=== PATIENT | female | born 1985 | race Caucasian/White ===

== ENCOUNTER 2017-05-21 16:00 | Inpatient (IN) ==
[2017-05-21] MEDS ORDERED: 0.9 % Sodium Chloride 1,000 ML IVC ONE (16:18)
[2017-05-21] MEDS ORDERED: Ondansetron 4 MG/2 ML VIAL IVP ONE (16:18)
[2017-05-21] MEDS ORDERED: Ketorolac 30 MG/ML VIAL IVP ONE (16:18)
--- NOTE | 2017-05-21 16:20 | Emergency Department Note ---
Disposition Clinical Impression: Vaginal bleeding Anemia Qualifiers: Anemia type: iron deficiency Iron deficiency anemia type: chronic blood loss Qualified Code(s): D50.0 - Iron deficiency anemia secondary to blood loss ( chronic) Disposition: Admitted As Inpatient Condition: Serious Time of Disposition: 19:22 Female Urogenital HPI - General Chief complaint: ED Vaginal Bleeding Stated complaint: Vaginal Bleed, abd pain Time Seen by Provider: 05/21/17 16:06 Source: patient Limitations: no limitations Nursing Notes Reviewed: Yes Vital Signs Reviewed: Yes - History of Present Illness HPI Narrative: 32-year-old female s/p tubal, presents with vaginal bleeding that she describes as intermittent, dark blood, soaking through several pads she has had this bleeding for 5 months, she was seen for a biopsy to her [address] Balbuena, he also wrote her prescription for Flagyl she is not sure why but she is on day 8 currently and has 2 more days of treatment. She reports intermittent discharge that she describes as watery and sometimes bloody, she is no concern for new STDs although she is not sure why she was started on Flagyl again, she was seen by her OBG Y and that was unable to get into [facility] today because the May, so she came to the ER due to persistent but similar symptoms of vaginal bleeding to had over the last few weeks. She denies fever chills shortness of breath or chest pain, does have intermittent left ankle swelling, no DVT history, no OCP use. Pt Subjective Complaint: vaginal bleeding Location: suprapubic Radiation: LLQ Severity: mild Quality: aching Duration: intermittent Vaginal discharge: dark blood Sexual activity: yes : no Associated symptoms: Reports: abnormal vaginal discharge, abnormal vaginal bleeding. Denies: abdominal pain, nausea/vomiting, fever/chills - Related Data Home Medications Medication Instructions Recorded Confirmed metroNIDAZOLE [Flagyl] 500 mg PO BID 05/21/17 05/21/17 Allergies Allergy/AdvReac Type Severity Reaction Status Date / Time No Known Allergies Allergy Verified 01/18/17 16:36 All systems ED: reviewed and negative except as stated. Constitutional: Denies: fever, chills Cardiovascular: Denies: chest pain Respiratory: Denies: cough Gastrointestinal: Reports: abdominal pain. Denies: nausea, vomiting, diarrhea, hematemesis, hematochezia Genitourinary: Reports: as per HPI, abnormal menses. Denies: urgency, dysuria, frequency Musculoskeletal: Denies: back pain Integumentary: Denies: rash, abrasion Past Medical History - Past Medical History Attestation: Yes The following information was validated with the patient. Source: patient Medical history: Reports: no medical history, other Psychiatric history: Reports: no psych history [facility] history: Reports: bilateral tubal ligation - Social History Smoking Status: Current every day smoker Smokeless Tobacco Status: No Alcohol use: Reports: none Drug use: Reports: none Physical Exam Constitutional: mild tachycardia heart rate 104, otherwise no acute distress, thin female, appears slightly older than stated age HEENT: NCAT, sclera anicteric, conjunctiva pallor Neck: normal inspection, neck is supple, trachea midline Resp: normal chest inspection, CTA bilaterally, no resp distress CV: RRR, no m/g/r GI: normal inspection, Soft, mild suprapubic tenderness to palpation, no hepatosplenomegaly, BS x 4 quadrants, negative Levin's Sign, no tenderness at McBurney' point, Negative Rovsing's : large dark blood clot in introitos, 5x5cm clot, with no POC, no introitus lacerations, cervical os closed blood appears to be from cervix, no CMT Back: normal inspection, negative CVA bilaterally, no tenderness to palpation Neuro: A&O3, no gross motor or sensory deficits bilaterally MSK: normal inspection, bilateral UE and LE with normal ROM Skin: No rashes, skin warm, dry, intact - General Limitations: no limitations General appearance: alert, in no apparent distress Course Course Narrative: 32-year-old female with concerns for menometrorrhagia versus vaginal bleeding status post cervical biopsy likely postbiopsy bleeding however she does have a long history of bleeding between periods and heavy period bleeding, she is a biopsy with past pending per Dr. Balbuena, and his follow-up appointment in approximately 21 days, at this time we will check a CBC, basic lab work urinalysis test, vaginal exam and reassess, IVF for tachycardia othwerwise does not appear anemic, but has hx of anemia too. - Reevaluation(s) Reevaluation #1: Patient's only emergency department, at this time she is still hemodynamically stable, heart rate in the 80s, that he may 9% on room air, blood pressure 130/80 , will transferred to OB department in stable condition, blood bank blood is still processing testing prior to transfusion, plan to get 2 units when she arrives in OB labor and delivery department, nursing on both ends of the transfer were informed, 5 attempted peripheral IV access attempts unsuccessful she does have 1 good iv prior to transfer. Time: 19:22 - Consultations Consultation #1: I spoke with Dr. Mahan in consultation, told him that the patient had vaginal bleeding, with recent biopsy, hemoglobin was 5.4 last globin was 9 month ago, he agrees with transfusion of 2 units, states type and cross for 4, will admit to the [facility] service, pelvic ultrasound in the morning, I added coags, BNP second peripheral IV right now the patient is hemodynamically stable with blood pressure 140s, heart rate 99-103. Vital Signs Temperature 98.1 F 05/21/17 16:01 Pulse Rate 99 05/21/17 16:01 Respiratory Rate 16 05/21/17 16:01 Blood Pressure 149/91 05/21/17 16:01 O2 Sat by Pulse Oximetry 100 05/21/17 16:01 Temperature 98.4 F 05/21/17 21:15 Pulse Rate 91 05/21/17 21:15 Respiratory Rate 12 05/21/17 21:15 Blood Pressure 125/88 05/21/17 20:03 O2 Sat by Pulse Oximetry 98 05/21/17 20:03 Oxygen Delivery Oxygen Delivery Room Air Urogenital-Female - MDM Narrative Medical decision making narrative: 32-year-old female with vaginal bleeding, found to be profoundly anemic with a hemoglobin of 5.4 on records reviewed shows that she had a hemoglobin of 12 and January, 9.2 at the end of March, this may be a gradual however she is definitely in need of urgent blood transfusion, admitted to the OB service with stable vital signs, mild tachycardia otherwise no active bright red bleeding, large clots seen on pelvic exam, started additional peripheral IVs added coag panel, 2 units of RBCs to be given in the emergency department, patient will be transferred to [facility] service in stable but serious condition - Differential Diagnosis Likely: urinary tract infection, ovarian cyst - Medical Records Medical records reviewed: Yes I reviewed the patient's medical records. - Lab Data Lab results reviewed: Yes I reviewed the patient's lab results. Result diagrams: 05/21/17 17:14 05/21/17 17:14 Lab Results 05/21/17 05/21/17 05/21/17 Range/Units 16:34 16:38 16:38 WBC (4.3-11.1) K/mcL RBC (3.82-4.97) M/mcL Hgb (11.5-15.4) g/dL Hct (35.3-44.9) % MCV (83.0-100.0) fL MCH (28.0-33.3) pg MCHC (31.6-35.5) g/dL RDW (11.5-14.5) % Plt Count (140-400) K/mcL MPV (9.4-12.4) fL Immature Gran % (0-4) % Seg Neutrophils % % Lymphocytes % % Monocytes % % Eosinophils % % Basophils % % Neutrophils # (1.6-8.9) K/mcL Lymphocytes # (0.6-4.6) K/mcL Monocytes # (0.0-1.3) K/mcL Eosinophils # (0.0-0.6) K/mcL Basophils # (0.0-0.2) K/mcL Platelet Estimate (Normal) Immature Plt Fraction (1.1-6.1) % Polychromasia (Not Present) Hypochromasia (Not Present) Anisocytosis (Not Present) Microcytosis (Not Present) PT (9.4-12.1) Seconds INR APTT (26.0-36.0) Seconds Sodium (136-145) mEq/L Potassium (3.5-4.5) mEq/L Chloride (98-109) mEq/L Carbon Dioxide (19-29) mEq/L BUN (7-20) mg/dL Creatinine (0.57-1.11) mg/dL Est GFR ( Amer) (> 60) Est GFR (Non-Af Amer) (> 60) BUN/Creatinine Ratio (6-26) Glucose (70-99) mg/dL Calculated Osmolality (280-300) Calcium (8.6-10.8) mg/dL Urine Color Dark Yellow (Yellow) Urine Clarity Cloudy A (Clear) Urine pH 6.0 (5.0-8.0) pH Units Ur Specific [place] 1.028 H (1.010-1.025) Urine Protein 30 H (Neg-Trace) mg/dL Urine Glucose (UA) Normal (Normal) mg/dL Urine Ketones Trace H (Negative) mg/dL Urine Blood Large H (Negative) Urine Nitrite Negative (Negative) Urine Bilirubin Negative (Negative) Urine Urobilinogen Normal (Normal) mg/dL Ur Leukocyte Esterase Moderate H (Negative) Urine Microscopic RBC TNTC H (0-3) per hpf Urine Microscopic WBC 15-30 H (0-3) per hpf Ur Squamous Epith Cells Many H (None-Few) per lpf Urine Bacteria None Seen (None-Few) per hpf Hyaline Casts None Seen (None-Few) per lpf Ur Culture Indicated? YES A (NO) Urine Test Negative (Negative) Joi species DNA (Not Detect) Chlam trachomat DNA PCR (Not Detect) Gardnerella DNA Probe (Not Detect) N.gonorrhoeae DNA (PCR) (Not Detect) Trichomonas DNA Probe (Not Detect) Specimen Rejected MCV Delta Blood Type Antibody Screen Crossmatch 05/21/17 05/21/17 05/21/17 Range/Units 17:08 17:08 17:14 WBC 10.1 (4.3-11.1) K/mcL RBC 2.84 L (3.82-4.97) M/mcL Hgb 5.4 L* (11.5-15.4) g/dL Hct 20.0 L (35.3-44.9) % MCV 70.4 L D (83.0-100.0) fL MCH 19.0 L (28.0-33.3) pg MCHC 27.0 L (31.6-35.5) g/dL RDW 19.7 H (11.5-14.5) % Plt Count 309 (140-400) K/mcL MPV 10.6 (9.4-12.4) fL Immature Gran % 0.2 (0-4) % Seg Neutrophils % 70.4 % Lymphocytes % 23.0 % Monocytes % 5.3 % Eosinophils % 1.0 % Basophils % 0.1 % Neutrophils # 7.1 (1.6-8.9) K/mcL Lymphocytes # 2.3 (0.6-4.6) K/mcL Monocytes # 0.5 (0.0-1.3) K/mcL Eosinophils # 0.1 (0.0-0.6) K/mcL Basophils # 0.0 (0.0-0.2) K/mcL Platelet Estimate Normal (Normal) Immature Plt Fraction 5.4 (1.1-6.1) % Polychromasia 1+ A (Not Present) Hypochromasia Present A (Not Present) Anisocytosis 1+ A (Not Present) Microcytosis Present A (Not Present) PT (9.4-12.1) Seconds INR APTT (26.0-36.0) Seconds Sodium (136-145) mEq/L Potassium (3.5-4.5) mEq/L Chloride (98-109) mEq/L Carbon Dioxide (19-29) mEq/L BUN (7-20) mg/dL Creatinine (0.57-1.11) mg/dL Est GFR ( Amer) (> 60) Est GFR (Non-Af Amer) (> 60) BUN/Creatinine Ratio (6-26) Glucose (70-99) mg/dL Calculated Osmolality (280-300) Calcium (8.6-10.8) mg/dL Urine Color (Yellow) Urine Clarity (Clear) Urine pH (5.0-8.0) pH Units Ur Specific [place] (1.010-1.025) Urine Protein (Neg-Trace) mg/dL Urine Glucose (UA) (Normal) mg/dL Urine Ketones (Negative) mg/dL Urine Blood (Negative) Urine Nitrite (Negative) Urine Bilirubin (Negative) Urine Urobilinogen (Normal) mg/dL Ur Leukocyte Esterase (Negative) Urine Microscopic RBC (0-3) per hpf Urine Microscopic WBC (0-3) per hpf Ur Squamous Epith Cells (None-Few) per lpf Urine Bacteria (None-Few) per hpf Hyaline Casts (None-Few) per lpf Ur Culture Indicated? (NO) Urine Test (Negative) Joi species DNA Not Detected (Not Detect) Chlam trachomat DNA PCR NOT DETECTED (Not Detect) Gardnerella DNA Probe Not Detected (Not Detect) N.gonorrhoeae DNA (PCR) NOT DETECTED (Not Detect) Trichomonas DNA Probe Not Detected (Not Detect) Specimen Rejected Blood Type Antibody Screen Crossmatch 05/21/17 05/21/17 05/21/17 Range/Units 17:14 17:14 17:14 WBC (4.3-11.1) K/mcL RBC (3.82-4.97) M/mcL Hgb (11.5-15.4) g/dL Hct (35.3-44.9) % MCV (83.0-100.0) fL MCH (28.0-33.3) pg MCHC (31.6-35.5) g/dL RDW (11.5-14.5) % Plt Count (140-400) K/mcL MPV (9.4-12.4) fL Immature Gran % (0-4) % Seg Neutrophils % % Lymphocytes % % Monocytes % % Eosinophils % % Basophils % % Neutrophils # (1.6-8.9) K/mcL Lymphocytes # (0.6-4.6) K/mcL Monocytes # (0.0-1.3) K/mcL Eosinophils # (0.0-0.6) K/mcL Basophils # (0.0-0.2) K/mcL Platelet Estimate (Normal) Immature Plt Fraction (1.1-6.1) % Polychromasia (Not Present) Hypochromasia (Not Present) Anisocytosis (Not Present) Microcytosis (Not Present) PT 13.1 H (9.4-12.1) Seconds INR 1.2 APTT 29.9 (26.0-36.0) Seconds Sodium 136 (136-145) mEq/L Potassium 3.5 (3.5-4.5) mEq/L Chloride 103 (98-109) mEq/L Carbon Dioxide 26 (19-29) mEq/L BUN 11 (7-20) mg/dL Creatinine 0.95 (0.57-1.11) mg/dL Est GFR ( Amer) > 60 (> 60) Est GFR (Non-Af Amer) > 60 (> 60) BUN/Creatinine Ratio 12 (6-26) Glucose 79 (70-99) mg/dL Calculated Osmolality 280 (280-300) Calcium 9.0 (8.6-10.8) mg/dL Urine Color (Yellow) Urine Clarity (Clear) Urine pH (5.0-8.0) pH Units Ur Specific [place] (1.010-1.025) Urine Protein (Neg-Trace) mg/dL Urine Glucose (UA) (Normal) mg/dL Urine Ketones (Negative) mg/dL Urine Blood (Negative) Urine Nitrite (Negative) Urine Bilirubin (Negative) Urine Urobilinogen (Normal) mg/dL Ur Leukocyte Esterase (Negative) Urine Microscopic RBC (0-3) per hpf Urine Microscopic WBC (0-3) per hpf Ur Squamous Epith Cells (None-Few) per lpf Urine Bacteria (None-Few) per hpf Hyaline Casts (None-Few) per lpf Ur Culture Indicated? (NO) Urine Test (Negative) Joi species DNA (Not Detect) Chlam trachomat DNA PCR (Not Detect) Gardnerella DNA Probe (Not Detect) N.gonorrhoeae DNA (PCR) (Not Detect) Trichomonas DNA Probe (Not Detect) Specimen Rejected Blood Type O POSITIVE Antibody Screen NEGATIVE Crossmatch See Detail Attestation Statement - Attestation Attestation: I, Chris Lilly, examined this patient and my medical decision-making was reviewed with the TABLEAU LEAD/PA/Advanced Practice Nurse/Resident Physician. I agree with the documented findings, disposition and treatment plan as described except to the extent set forth below. 32-year-old female presents with concerns of persistent vaginal bleeding. Patient states she has had vaginal bleeding for the past few months prior to evaluation emergency department today. States she has been evaluated by her OB/ [facility]ER[facility] MACHINE OPERATOR physician, Dr. Balbuena with diagnosis of friable cervix. [facility] CHECK[facility] physician apparently used a silver nitrate to control bleeding last time she was evaluated. Patient states she has continued to bleed and is using multiple pads a day. Patient reports she feels no syncopal with exertion. She was mildly tachycardic on initial evaluation. Resident performed a pelvic exam which revealed a large amount of blood clots in the vaginal vault however there was not a significant amount of active bleeding. Patient's hemoglobin returned significantly low. She will be admitted for further evaluation by [facility] and for transfusion of packed red blood cells. Patient is comfortable with this plan.
[2017-05-21 16:49] LABS: Bilirubin,Urine Negative (Negative); Blood,Urine Large (Negative); Clarity,Urine Cloudy (Clear); Color,Urine Dark Yellow (Yellow); Glucose,Urine (UA) Normal (Normal); Ketones,Urine Trace mg/dL (Negative); Leukocyte Esterase,Urine Moderate (Negative); Nitrite,Urine Negative (Negative); Protein,Urine 30 mg/dL (Neg-Trace); Specific Gravity,Urine 1.028 (1.010-1.025); Urobilinogen,Urine Normal (Normal)
[2017-05-21 16:52] LABS: Bacteria,Urine None Seen per hpf (None-Few); Hyaline Casts,Urine None Seen per lpf (None-Few); RBC,Urine TNTC per hpf (0-3); Squamous Epithelial Cell,Urine Many per lpf (None-Few); WBC,Urine 15-30 per hpf (0-3)
[2017-05-21 17:22] LABS: Basophils % 0.1 %
[2017-05-21 17:25] LABS: Eosinophils # 0.1 K/mcL (0.0-0.6); Immature Granulocytes % 0.2 % (0-4); Immature Platelets 5.4 % (1.1-6.1); Lymphocytes # 2.3 K/mcL (0.6-4.6); Mean Corpuscular Volume 70.4 fL (83.0-100.0); Mean Platelet Volume 10.6 fL (9.4-12.4); Monocytes # 0.5 K/mcL (0.0-1.3); Monocytes % 5.3 %; Neutrophils # 7.1 K/mcL (1.6-8.9); Platelet Count 309 K/mcL (140-400); Red Blood Count 2.84 M/mcL (3.82-4.97); Red Cell Distribution Width 19.7 % (11.5-14.5); Segmented Neutrophils % 70.4 %
[2017-05-21 17:35] LABS: Hemoglobin 5.4 g/dL (11.5-15.4)
[2017-05-21 17:57] LABS: BUN/Creatinine Ratio 12 (6-26); Blood Urea Nitrogen 11 mg/dL (7-20); Carbon Dioxide 26 mEq/L (19-29); Chloride 103 mEq/L (98-109); Glucose 79 mg/dL (70-99); Osmolality,Calculated 280 (280-300); Potassium 3.5 mEq/L (3.5-4.5); Sodium 136 mEq/L (136-145); eGFR For African Americans > 60 (> 60); eGFR For Non-African Americans > 60 (> 60)
[2017-05-21 18:01] LABS: INR 1.2; Prothrombin Time 13.1 Seconds (9.4-12.1)
[2017-05-21 18:02] LABS: Candida DNA Not Detected (Not Detect); Gardnerella DNA Not Detected (Not Detect); Trichomonas DNA Not Detected (Not Detect)
[2017-05-21 18:03] LABS: Activated Partial Thrombo Time 29.9 Seconds (26.0-36.0)
[2017-05-21 18:04] LABS: Anisocytosis 1+ (Not Present); Hypochromasia Present (Not Present)
[2017-05-21 18:05] LABS: Microcytosis Present (Not Present); Platelet Estimate Normal (Normal); Polychromasia 1+ (Not Present)
[2017-05-21] MEDS ORDERED: 0.9 % Sodium Chloride 1,000 ML ONE ×2 (20:33→23:12)
[2017-05-21] MEDS ORDERED: Ibuprofen 600 MG TABLET PO PRN (20:34)
--- NOTE | 2017-05-21 20:52 | OB/GYN History & Physical ---
Date of Encounter: 05/21/17 Time of Encounter: 20:30 Assessment and Plan (1) Anemia Current visit: Yes Status: Chronic Qualifiers: Anemia type: iron deficiency Iron deficiency anemia type: chronic blood loss Qualified Code(s): D50.0 - Iron deficiency anemia secondary to blood loss (chronic) (2) Vaginal bleeding Current visit: Yes Status: Chronic History of Present Illness HPI: Ms. Sheth is a 32 year old female Patient is a 3 para 3 white female who was admitted to the emergency room for management of blood loss anemia. Patient reports that she has been having bleeding off and on since December. She recently saw Dr. Murphy for a biopsy. Patient reports she is having low-grade midline discomfort has been going on for several months as well. Past Med Surg Social Fam HX - Past Medical History Medical history: no medical history, other Psychiatric history: no psych history - Social History Smoking Status: Current every day smoker Smokeless Tobacco Status: No Alcohol use: none Drug use: none Obstetrical History - Pregnancies : 3 Para: 3 Medications and Allergies metroNIDAZOLE [Flagyl] 500 mg PO BID 05/21/17 [History] Allergies No Known Allergies Allergy (Verified 01/18/17 16:36) Review of System OB All systems PM: reviewed and no additional remarkable complaints except as stated - Genitourinary Genitourinary: abnormal vaginal bleeding, menorrhagia - Menstruation Menstruation: currently menstrual, menses 8 or > days Exam - Vital Signs Vital signs: Initial Vital Signs Temp Pulse Resp BP Pulse Ox 98.1 F 99 16 149/91 100 05/21/17 16:01 05/21/17 16:01 05/21/17 16:01 05/21/17 16:01 05/21/17 16:01 - Constitutional Constitutional: thin, cachectic - HEENT HEENT: Normocephaly, Mucus Membranes Moist - Neck Neck exam: full ROM - Lungs Respiratory exam: decreased breath sounds - Cardiovascular Cardiovascular exam: RRR - Abdomen Abdomen: Present: non tender - Extremities Extremities exam: full ROM - Vulva Vulva: bilateral: normal (per ED ) - Uterus Uterus exam: Present: normal size (PER ED ) Results Result Diagrams: 05/21/17 17:14 05/21/17 17:14 Abnormal lab results RBC 2.84 M/mcL (3.82-4.97) L 05/21/17 17:14 Hgb 5.4 g/dL (11.5-15.4) L* 05/21/17 17:14 Hct 20.0 % (35.3-44.9) L 05/21/17 17:14 MCV 70.4 fL (83.0-100.0) L D 05/21/17 17:14 MCH 19.0 pg (28.0-33.3) L 05/21/17 17:14 MCHC 27.0 g/dL (31.6-35.5) L 05/21/17 17:14 RDW 19.7 % (11.5-14.5) H 05/21/17 17:14 Polychromasia 1+ (Not Present) A 05/21/17 17:14 Hypochromasia Present (Not Present) A 05/21/17 17:14 Anisocytosis 1+ (Not Present) A 05/21/17 17:14 Microcytosis Present (Not Present) A 05/21/17 17:14 PT 13.1 Seconds (9.4-12.1) H 05/21/17 17:14 Urine Clarity Cloudy (Clear) A 05/21/17 16:38 Ur Specific [place] 1.028 (1.010-1.025) H 05/21/17 16:38 Urine Protein 30 mg/dL (Neg-Trace) H 05/21/17 16:38 Urine Ketones Trace mg/dL (Negative) H 05/21/17 16:38 Urine Blood Large (Negative) H 05/21/17 16:38 Ur Leukocyte Esterase Moderate (Negative) H 05/21/17 16:38 Urine Microscopic RBC TNTC per hpf (0-3) H 05/21/17 16:38 Urine Microscopic WBC 15-30 per hpf (0-3) H 05/21/17 16:38 Ur Squamous Epith Cells Many per lpf (None-Few) H 05/21/17 16:38 Ur Culture Indicated? YES (NO) A 05/21/17 16:38 All other labs normal.
[2017-05-22 07:03] LABS: Basophils % 0.3 %; Eosinophils # 0.2 K/mcL (0.0-0.6); Eosinophils % 1.8 %; Hematocrit 25.8 % (35.3-44.9); Hemoglobin 7.6 g/dL (11.5-15.4); Immature Granulocytes % 0.3 % (0-4); Lymphocytes # 2.4 K/mcL (0.6-4.6); Lymphocytes % 26.7 %; Mean Corpuscular HGB Conc 29.5 g/dL (31.6-35.5); Mean Corpuscular Hemoglobin 21.8 pg (28.0-33.3); Mean Corpuscular Volume 73.9 fL (83.0-100.0); Mean Platelet Volume 10.4 fL (9.4-12.4); Monocytes # 0.6 K/mcL (0.0-1.3); Monocytes % 7.2 %; Neutrophils # 5.7 K/mcL (1.6-8.9); Platelet Count 255 K/mcL (140-400); Red Blood Count 3.49 M/mcL (3.82-4.97); Red Cell Distribution Width 20.1 % (11.5-14.5); Segmented Neutrophils % 63.7 %
[2017-05-22 07:29] LABS: INR 1.1; Prothrombin Time 12.2 Seconds (9.4-12.1)
[2017-05-22 07:31] LABS: Activated Partial Thrombo Time 27.2 Seconds (26.0-36.0)
[2017-05-22 08:08] VITALS: BP 118/80
[2017-05-22 08:45] LABS: Amphetamine Screen,Urine Negative ng/mL (Cutoff=1000); Benzodiazepines Screen,Urine Negative ng/mL (Cutoff=200); Cannabinoid Screen,Urine Negative ng/mL (Cutoff = 50); Cocaine Screen,Urine Negative ng/mL (Cutoff= 300); Opiate Screen,Urine Negative ng/mL (Cutoff=300)
--- NOTE | 2017-05-22 09:34 | OB/GYN Progress Note ---
Date of Encounter: 05/22/17 Time of Encounter: 09:32 - Assessment and Plan (1) Severe dysplasia of cervix (MAGO III) Current Visit: Yes Status: Acute Will d/w [facility] possibility of transfer for further evaluation/management (2) Anemia Current Visit: Yes Status: Chronic Pt stable s/p 2 units prbc's Qualifiers: Iron deficiency anemia type: chronic blood loss Qualified Code(s): D50.0 - Iron deficiency anemia secondary to blood loss (chronic) (3) Vaginal bleeding Current Visit: Yes Status: Chronic Pt with very enlarged and friable cervix, bx shows severe dysplasia "suspicious for invasion". Will d/w [facility] tipple repairer onc for possible transfer. Subjective - Subjective Principal diagnosis: Severe dysplasia of cervix, profound anemia, dysfunctional uterine bleeding Interval history: Pt feeling better, still with vaginal bleeding/discharge Objective - Exam Auscultation: bilateral: normal Abdomen: Present: soft, other (mild llq tenderness) - Labs Labs: Abnormal lab results RBC 3.49 M/mcL (3.82-4.97) L 05/22/17 06:42 Hgb 7.6 g/dL (11.5-15.4) L D 05/22/17 06:42 Hct 25.8 % (35.3-44.9) L 05/22/17 06:42 MCV 73.9 fL (83.0-100.0) L 05/22/17 06:42 MCH 21.8 pg (28.0-33.3) L 05/22/17 06:42 MCHC 29.5 g/dL (31.6-35.5) L 05/22/17 06:42 RDW 20.1 % (11.5-14.5) H 05/22/17 06:42 Polychromasia 1+ (Not Present) A 05/21/17 17:14 Hypochromasia Present (Not Present) A 05/21/17 17:14 Anisocytosis 1+ (Not Present) A 05/21/17 17:14 Microcytosis Present (Not Present) A 05/21/17 17:14 PT 12.2 Seconds (9.4-12.1) H 05/22/17 06:42 Fibrinogen 437 mg/dL (169-393) H 05/22/17 06:42 Urine Clarity Cloudy (Clear) A 05/21/17 16:38 Ur Specific [place] 1.028 (1.010-1.025) H 05/21/17 16:38 Urine Protein 30 mg/dL (Neg-Trace) H 05/21/17 16:38 Urine Ketones Trace mg/dL (Negative) H 05/21/17 16:38 Urine Blood Large (Negative) H 05/21/17 16:38 Ur Leukocyte Esterase Moderate (Negative) H 05/21/17 16:38 Urine Microscopic RBC TNTC per hpf (0-3) H 05/21/17 16:38 Urine Microscopic WBC 15-30 per hpf (0-3) H 05/21/17 16:38 Ur Squamous Epith Cells Many per lpf (None-Few) H 05/21/17 16:38 Ur Culture Indicated? YES (NO) A 05/21/17 16:38
== END 2017-05-22 11:15 | disposition short-term general hospital (02) | DRG 532 ==
LOC: 1NENUOBS 16:00 → EMEROO 16:00 → 1NENUOBS 19:40
PROVIDERS: ADMIT Obstetrics & Gynecology; ATTEND Obstetrics & Gynecology